=== PATIENT | female | born 1970 | race Hispanic/Latino ===

== ENCOUNTER → 2022-02-16 | Day surgery (SDC) | payer BC ==
[~2022-02-16] MED LIST: BACTRIM DS TAB1 EACH PO; DULCOLAX10 MG PR; GLUCAGON FOR INJ 1 MG VIAL ONE; PROPOFOL IV EMULSION 10 MG/ML 20 ML VIAL ONE
[2022-02-16 09:05] VITALS: BP 128/78
== END | disposition home or self-care (01) ==
LOC: OR 06:25
PROVIDERS: ATTEND Internal Medicine Gastroenterology
DX: K59.09 Other constipation (principal); D12.8 Benign neoplasm of rectum; K63.3 Ulcer of intestine; K57.30 Diverticulosis of large intestine without perforation or abscess without bleeding; K64.8 Other hemorrhoids; Z71.3 Dietary counseling and surveillance; Z01.810 Encounter for preprocedural cardiovascular examination; Z01.812 Encounter for preprocedural laboratory examination; Z20.822 Contact with and (suspected) exposure to COVID-19; Z68.31 Body mass index [BMI] 31.0-31.9, adult
CPT/HCPCS: 45380; 93005; J1610; J2704; U0002